=== PATIENT | female | born 1985 | race Caucasian/White ===

== ENCOUNTER 2019-05-15 16:11 | Emergency (ER) | payer OTHER ==
[~2019-05-15] VITALS: Ht 170.2 cm; Wt 99.8 kg
[~2019-05-15 16:11] MED LIST: DARVOCET-N 1001 EACH PO; PENICILLIN V P500 MG PO; PERCOCET 5-3251 EACH PO; PHENERGAN 25 MG25 M1 PO; TRINATE TABLET1 TAB PO
[2019-05-15 16:51] LABS: INFLUENZA A ANTIGEN Negative (Negative); INFLUENZA B ANTIGEN Negative (Negative)
[2019-05-15 17:31] LABS: ABSOLUTE EOSINOPHILS 0.1 thou/uL (0.0-0.7); ABSOLUTE LYMPHOCYTES 0.8 thou/uL (0.8-5.3); ABSOLUTE MONOCYTES 0.6 thou/uL (0.0-1.2); ABSOLUTE NEUTROPHILS 2.9 thou/uL (1.6-8.1); BASOPHILS 0.5 %; EOSINOPHILS 2.3 %; HEMATOCRIT 29.6 % (37.0-47.0); HEMOGLOBIN 9.6 gm/dL (12.0-15.0); LYMPHOCYTES 18.5 %; MCH 23.9 pg (26.0-34.0); MCHC 32.6 g/dL (28.0-37.0); MCV 73.3 fL (80.0-100.0); MONOCYTES 13.6 %; MPV 7.4 fl. (7.2-11.1); NUCLEATED RBCS 0 /100WBC; PLATELET COUNT* 201 thou/uL (150-400); POLYS 65.1 %; RBC 4.03 mil/uL (4.20-5.00); RDW-CV 16.4 % (10.5-14.5); WBC 4.4 thou/uL (4.0-11.0)
[2019-05-15 17:39] LABS: CALCIUM 8.8 mg/dL (8.5-10.1); CREATININE 0.7 mg/dL (0.6-1.3); POTASSIUM 4.1 mmol/L (3.5-5.1)
[2019-05-15 17:44] LABS: ALBUMIN 3.2 g/dL (3.4-5.0); TOTAL BILIRUBIN 0.2 mg/dL (<0.1-1.0); TOTAL PROTEIN 7.5 g/dL (6.4-8.2)
[2019-05-15] MEDS ORDERED: PREDNISONE 20 M20 MG PO (20:00)
[2019-05-15] MEDS ORDERED: TYLENOL WITH CO1 TA1 PO (20:00)
[2019-05-15] MEDS ORDERED: NORCO 5-325 TA1 EAC1 PO (20:03)
[2019-05-15] MEDS ORDERED: ERYTHROMYCIN E3.5 G3 OPHTHALMIC (20:12)
[2019-05-15] MEDS ORDERED: IBUPROFEN 800800 M1 PO (20:12)
[2019-05-15 20:45] VITALS: BP 115/56
== END 2019-05-15 20:45 | disposition home or self-care (01) ==
LOC: M.ERS 16:11
PROVIDERS: Nurse Practitioner Family
DX: J03.90 Acute tonsillitis, unspecified (principal); H10.9 Unspecified conjunctivitis; Z98.51 Tubal ligation status

== ENCOUNTER 2020-12-20 08:10 | Emergency (ER) | payer OTHER ==
[~2020-12-20] VITALS: Ht 170.2 cm; Wt 93.4 kg
[~2020-12-20 08:10] MED LIST changes: +ERYTHROMYCIN E3.5 G3 OPHTHALMIC; +IBUPROFEN 800800 M1 PO; +NORCO 5-325 TA1 EAC1 PO; +PREDNISONE 20 M20 MG PO; +TYLENOL WITH CO1 TA1 PO
[2020-12-20] MEDS ORDERED: WELLBUTRIN 100100 MG PO (08:45)
[2020-12-20] MEDS ORDERED: VENTOLIN HFA 1818 GM INH (11:17)
[2020-12-20] MEDS ORDERED: TESSALON PERLE100 MG PO (11:17)
[2020-12-20 11:25] VITALS: BP 130/93
== END 2020-12-20 11:25 | disposition home or self-care (01) ==
LOC: M.ERS 08:10
DX: U07.1 COVID-19 (principal)